=== PATIENT | female | born 1965 | race Caucasian/White ===

== ENCOUNTER → 2017-04-05 | Outpatient (CLI) | payer BC | LOC: RAD 14:51 | DX: Z12.31 Encounter for screening mammogram for malignant neoplasm of breast (principal) ==

== ENCOUNTER 2017-07-14 09:57 | Day surgery (SDC) | payer BC ==
[~2017-07-14] VITALS: Ht 160 cm; Wt 61.2 kg
--- NOTE | ~2017-07-14 | H ---
[facility] [place] [address] HISTORY AND PHYSICAL Name: BOO CASAS Room #: DEP [facility]..#: [id number] Admission: 07/14/17 Attend Phys: Yonny Tyler MD Discharge: 07/14/17 Date of : 61 Report #: [id number] THIS REPORT FOR: //name// CC: Magdiel Tyler PREOPERATIVE DIAGNOSIS: Mass in the left abdomen and left arm, possible scar reaction from insulin injection site. HISTORY: The patient is a 52-year-old who has noticed a lump in the left arm and abdominal wall for about a year. Recently, it has gotten larger and now more painful. This area feels firm. Apparently, a mass was taken out about 20 years ago that was about the size of a golf ball and she said that she was told that it was a scar related to injection. These are two areas where she does give herself injections for insulin. Since the nodule has come up, she is given her insulin in different areas. A firm mass is found in both areas and excision is recommended because its increasing size and more painful. The pain is throbbing in nature. The patient will be brought in for the procedure. PAST HISTORY: The patient has a history of diabetes. The patient denies heart disease, denies high blood pressure, denies lung disease, denies liver, denies kidney disease, denies bleeding disorder and denies blood clot history. MEDICATIONS: Humalog 15 units before each meal and Lantus 20 units at bedtime. PAST SURGICAL HISTORY: Three C-sections from 1986 to 1992. Removal of a golf ball sized lump in the right abdominal wall 23 years ago. ALLERGIES: SHE IS ALLERGIC TO BEEF AND PORK INSULIN. FAMILY HISTORY: No illnesses run in the family. SOCIAL HISTORY: The patient smokes about half a pack to a pack a day. Rarely drinks. REVIEW OF SYSTEMS: She denies any shortness of breath, chest pain or palpitation. No numbness, no weakness. PHYSICAL EXAMINATION: GENERAL: The patient is a well-nourished female in no acute distress. HEENT: Pupils react to light. Extraocular muscles are intact. Oropharynx is clear. NECK: Soft and supple. No masses. LUNGS: Clear to auscultation. HEART: Regular rate and rhythm. No murmur or gallop. [facility] [address] [place] [address] HISTORY AND PHYSICAL Name: BOO CASAS Room #: DEP [facility]#: [id number] Admission: 07/14/17 Attend Phys: Yonny Tyler MD Discharge: 07/14/17 Date of : 61 Report #: [id number] ABDOMEN: Soft, nondistended and nontender. The patient does have a mass in the abdomen. It is about 3 cm. There is also about a 2 cm mass in the left arm. There is no redness. It is moderately tender to palpation. NEUROLOGIC: Motor function is normal. Sensation is intact. IMPRESSION: The patient with a left arm mass and abdominal wall mass probably related to insulin injection and probable area of fat necrosis. This does not feel like a typical lipoma. Because of the pain, she is recommended to have this excised. This will be done as an outpatient with IV sedation and local. <ELECTRONICALLY SIGNED> By: Yonny Tyler MD 07/14/17 1713 [id number] [id number] Yonny Tyler MD /nt
--- NOTE | ~2017-07-14 | O ---
[facility] [place] [address] OPERATIVE REPORT Name: BOO CASAS Room #: DEP [facility]..#: [id number] Admission: 07/14/17 Attend Phys: Yonny Tyler MD Discharge: 07/14/17 Date of : 61 Report #: [id number] THIS REPORT FOR: //name// CC: Magdiel Tyler DATE OF SERVICE: 07/14/2017 PREOPERATIVE DIAGNOSIS: Mass in the left lower abdomen and left upper arm. POSTOPERATIVE DIAGNOSIS: Mass in the left lower abdomen and left upper arm. PROCEDURE PERFORMED: Excision of mass, left lower abdomen and left arm. ANESTHESIA: General LMA local anesthetic 0.25% Marcaine. COMPLICATIONS: None. ESTIMATED BLOOD LOSS: 5 mL. FINDINGS: The mass is subcutaneous thickened tissue probable fat necrosis related to his insulin injections repeated times. PROCEDURE NOTE: With the patient under general anesthesia LMA, abdomen and the arm was prepped and draped in sterile fashion. IV antibiotic was administered. Timeout was performed. Local anesthetic was used to anesthetize the skin and subcutaneous tissue. A small ellipse was drawn over the mass. Skin was excised. Cautery was used for hemostasis. The abdominal incision is about 4 cm. There is a large-sized mass found under this and it is a discoid shaped fat tissue that likely is a subcutaneous fatty tissue that is firm likely subcutaneous fat necrosis. This mass was easily palpated. This surrounding fat was dissected free using cautery. The area was then removed completely. Subcutaneous tissue was closed with 4-0 PDS. Skin was closed with 5-0 PDS. Steri-Strips applied, 4 x 4, OpSite used for dressing. The left upper arm was then exposed. This was also anesthetized with 0.25% Marcaine. A small ellipse of skin was excised. This mass is not as defined as the abdominal wall. It did contain a thickened tissue that I was able to dissect free. It measures about 3 cm. Skin was closed with 5-0 PDS. Steri-Strip, 4 x 4, OpSite used for dressing. The patient tolerated the procedure well and was taken to the recovery room. <ELECTRONICALLY SIGNED> By: Yonny Tyler MD 08/10/17 1513 1717 1752 Yonny Tyler MD /nt
--- NOTE | ~2017-07-14 | EKG ---
[address] [address] ELECTROCARDIOGRAM REPORT Name: BOO CASAS Room #: [address] [place] [address].#: [id number] Admission: 07/14/17 Attend Phys: Yonny Tyler MD Discharge: Date of : 61 Report #: [id number] THIS REPORT FOR: //name// [facility] Test Date: 2017-07-14 Test Time: 10:47:39 Pat Name: BOO CASAS Department: Room: 150 13 Gender: F Dry Cleaning Manager: janet lopez : 1965 Requested By: Jack Schaefer Order Number: [id number] MD: Derek Anderson Measurements Intervals [place] Rate: 69 P: 52 DC: 83 QRS: 118 QRSD: 91 T: 23 QT: 398 QTc: 427 Interpretive Statements Sinus rhythm Atrial premature complex Short DC interval Right axis deviation No previous ECG available for comparison Electronically Signed On 07-14-2017 11:27:17 GANG SUPER[employer] by Derek Anderson [email or web address] <ELECTRONICALLY SIGNED> By: Derek Anderson MD 07/14/17 1127 1047 46 Derek Anderson MD /KELLIE
--- NOTE | ~2017-07-14 | S ---
[facility] [address] [place] [address] SURGICAL PATH RPT PROCEDURE Name: LI TORRES Room #: DEP [facility]#: [id number] Admission: 07/14/17 Date of : 61 Discharge: 07/14/17 Report #: [id number] Path Case #: [id number] PATHOLOGY REPORT COLLECTION DATE: 07/14/2017 RECEIVED DATE: 07/14/2017 SUBMITTING PHYS: Dr. Yonny Tyler OTHER PHYS: Dr. Chris Pennington ADDENDUM REPORT (Order Date: 07/18/2017 16:16) ADDENDUM COMMENT: A properly controlled special stain is performed. Congo red (block A5) : Negative for amyloid The final diagnosis remains unchanged. (CLW:mgr; 07/18/2017) Professional services performed by [facility] at [facility] [address], [place] [address] Technical services performed by [facility] at [address] [place] [address], [address] [place] [address]. ELECTRONICALLY SIGNED BY: Alia Lam M.D. DATE/TIME:07/18/2017 17:08 SPECIMEN(S) RECEIVED: A.Left abdominal wall mass B.Left arm mass * * * * * * * * * * * * FINAL DIAGNOSIS: A. Soft tissue mass, "left abdominal wall mass," excision: - Skin and subcutaneous tissue with localized subcutaneous fibrosis and fat necrosis with associated chronic inflammation, foreign body type giant cell response, and dystrophic calcifications. B. Soft tissue mass, "left arm mass," excision: - Skin and subcutaneous tissue with localized subcutaneous fibrosis and fat necrosis with associated chronic inflammation and foreign body type giant cell response. COMMENT: A Congo red stain is pending on Part A and will be reported as an addendum. Clinical correlation is recommended. (CLW:; 07/15/2017) PATHOLOGIST: [place] [address] SURGICAL PATH RPT PROCEDURE Name: LI TORRES Room #: [facility]#: [id number] Admission: 07/14/17 Date of : 61 Discharge: 07/14/17 Report #: [id number] Path Case #: [id number] REPORT ELECTRONICALLY SIGNED BY: Alia Lam M.D. DATE/TIME: 07/16/2017 14:48 * * * * * * * * * * * * GROSS PATHOLOGY: A. Received in formalin labeled "Li Torres, left abdominal wall mass" is a 6.2 x 6.2 x 3.6 cm portion of yellow-apple lobulated fibroadipose tissue. A 4.0 x 1.2 x 0.4 cm ellipse of apple-white skin is present on one aspect. The specimen is received partially fragmented, and a 3.0 x 2.7 x 2.7 cm apple-yellow hemorrhagic firm fragmented mass is identified within the fibroadipose tissue. Loan Workout Officer sections of the mass are submitted in cassettes A1-A5. Loan Workout Officer sections of the skin are submitted in cassette A6. B. Received in formalin labeled "Li Torres, left arm mass" is a 6.5 x 5.2 x 1.5 cm aggregate of yellow-apple lobulated fibroadipose tissue. The portions range from 0.8-4.0 cm in greatest dimension. The largest portion has an ellipse of apple-white skin measuring 3.3 x 1.1 x 0.3 cm. The skin surface is grossly unremarkable. Upon sectioning, a yellow-apple lobulated cut surface is identified. A definitive mass is not grossly identified. Loan Workout Officer sections of the specimen are submitted as follows: B1 customer assistance representative skin B2-B4 customer assistance representative soft tissue ([facility]; 07/14/2017) CLINICAL HISTORY: Mass abdominal wall, left upper arm. INITIAL CPT CODE(S): A; 01294, 61949 B; 01751 Professional services performed by [facility] at [facility] [address], [place] [address] Technical services performed by [facility] at [address] [place] [address], [address], [place] [address]. [facility] [address] [place] [address] PHONE: [phone] DIRECTOR: Marcos Eubanks M.D. * * * END OF REPORT * * *
[~2017-07-14 09:57] MED LIST: ALEVE220 M1 PO; HUMALOG KW100 UNIT/1 SUBQ; LANTUS SUBQ
[2017-07-14 10:30] VITALS: BP 114/54
[2017-07-14 10:54] LABS: HEMATOCRIT 40.9 % (37.0-47.0); HEMOGLOBIN 13.4 gm/dL (12.0-15.0)
[2017-07-14 11:01] LABS: CALCIUM 9.2 mg/dL (8.5-10.1); CREATININE 0.9 mg/dL (0.6-1.0); POTASSIUM 4.4 mmol/L (3.5-5.1)
[2017-07-14 11:07] LABS: ALBUMIN 3.5 g/dL (3.4-5.0); TOTAL BILIRUBIN 0.5 mg/dL (<0.1-1.0); TOTAL PROTEIN 6.8 g/dL (6.4-8.2)
[2017-07-14] MEDS ORDERED: NORCO 5-325 TA1 EACH PO (13:47)
[2017-07-14 14:16] VITALS: BP 114/54
== END 2017-07-14 14:45 | disposition home or self-care (01) ==
LOC: TBA 09:57 → OR 09:57
PROVIDERS: Anesthesiology
DX: L98.8 Other specified disorders of the skin and subcutaneous tissue (principal); E11.9 Type 2 diabetes mellitus without complications; F17.210 Nicotine dependence, cigarettes, uncomplicated; Z98.890 Other specified postprocedural states; Z79.4 Long term (current) use of insulin; Z79.891 Long term (current) use of opiate analgesic
CPT/HCPCS: 50010; 50101; 50386; 56524; 56525; 62110; 62900; 70005

== ENCOUNTER → 2018-05-09 | Outpatient (CLI) | payer BC ==
[~2018-05-09] MED LIST changes: +NORCO 5-325 TA1 EACH PO
== END ==
LOC: RAD 15:14
DX: Z12.31 Encounter for screening mammogram for malignant neoplasm of breast (principal)

== ENCOUNTER → 2019-06-04 | Outpatient (CLI) | payer BC | LOC: RAD 11:23 | DX: Z12.31 Encounter for screening mammogram for malignant neoplasm of breast (principal) ==

== ENCOUNTER → 2020-06-23 | Outpatient (CLI) | payer BC | LOC: BC 14:26 | PROVIDERS: ATTEND Internal Medicine | DX: Z12.31 Encounter for screening mammogram for malignant neoplasm of breast (principal) ==

== ENCOUNTER → 2020-07-07 | Outpatient (CLI) | payer BC | LOC: ULTRA 10:10 | PROVIDERS: ATTEND Radiology Diagnostic Radiology | DX: N63.10 Unspecified lump in the right breast, unspecified quadrant (principal); N63.20 Unspecified lump in the left breast, unspecified quadrant ==

== ENCOUNTER → 2021-08-03 | Outpatient (CLI) | payer BC | LOC: BC 13:01 | PROVIDERS: ATTEND Internal Medicine | DX: Z12.31 Encounter for screening mammogram for malignant neoplasm of breast (principal); N64.89 Other specified disorders of breast ==